=== PATIENT | male | born 1985 | race Caucasian/White ===

== ENCOUNTER 2019-08-24 19:16 | Emergency (ER) | payer OTHER ==
[~2019-08-24] VITALS: Ht 175.3 cm; Wt 93.0 kg
[2019-08-24] MEDS ORDERED: NORCO 5-325 TA1 EAC1 PO (20:39)
[2019-08-24 20:44] VITALS: BP 119/75
== END 2019-08-24 21:06 | disposition home or self-care (01) ==
LOC: ER 19:16
DX: M25.561 Pain in right knee (principal); R20.0 Anesthesia of skin; Z88.1 Allergy status to other antibiotic agents; X50.1XXA Overexertion from prolonged static or awkward postures, initial encounter; Y93.72 Activity, wrestling; Y92.89 Other specified places as the place of occurrence of the external cause; Y99.8 Other external cause status